=== PATIENT | female | born 1980 | race American Indian/Alaskan Native ===

== ENCOUNTER 2020-02-15 21:14 | Emergency (ER) | payer MEDICAID ==
[2020-02-15 21:30] VITALS: BP 148/97
== END 2020-02-15 21:33 | disposition left against medical advice (07) ==
LOC: ED 21:14
DX: R07.89 Other chest pain (principal); R51.9 Headache, unspecified; Z53.21 Procedure and treatment not carried out due to patient leaving prior to being seen by health care provider
CPT/HCPCS: 93005

== ENCOUNTER 2021-09-01 12:10 | Emergency (ER) | payer OTHER, BC ==
[2021-09-01] MEDS ORDERED: ACETAMINOPHEN W/CODEINE 300-30 MG TAB PO ONE (17:07)
[2021-09-01] MEDS ORDERED: CYCLOBENZAPRINE 10 MG TAB PO ONE (17:07)
[2021-09-01] MEDS ORDERED: KETOROLAC 10 MG TAB PO ONE (17:07)
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
[2021-09-01 18:46] VITALS: BP 131/76
== END 2021-09-01 18:46 | disposition home or self-care (01) ==
LOC: ED 12:10
DX: M54.50 Low back pain, unspecified (principal); M25.561 Pain in right knee; I10 Essential (primary) hypertension; V89.2XXA Person injured in unspecified motor-vehicle accident, traffic, initial encounter; Y93.89 Activity, other specified; Y92.89 Other specified places as the place of occurrence of the external cause; Y99.8 Other external cause status
CPT/HCPCS: 72100; 99283